=== PATIENT | female | born 1990 | race Caucasian/White ===

== ENCOUNTER → 2016-10-25 | Outpatient (REF) | payer OTHER | LOC: M LAB REF 09:17 | PROVIDERS: ATTEND Physician Assistant | DX: N39.0 Urinary tract infection, site not specified (principal) ==

== ENCOUNTER → 2016-11-04 | Outpatient (CLI) | payer OTHER ==
--- NOTE | 2016-11-04 13:04 | REP ---
LUMBOSACRAL SPINE SERIES: Five views of the lumbosacral spine are performed. There is no compression fracture or malalignment with normal lumbar lordosis. There is no spondylolysis or spondylolisthesis. Tiny spurs are seen at L5. Disc spaces appear well preserved. There is mild sclerosis at the facets of L5-S1. IUD is seen in the pelvis. The posterior elements are intact. IMPRESSION: Mild spurring at L5 and mild sclerosis at the facets of L5-S1. Signed by Dion Lion MD 11/05/2016 03:14 P
--- NOTE | 2016-11-04 13:09 | REP ---
SACRUM AND COCCYX: Three views of the sacrum and coccyx are performed and compared to prior study of 10/27/2009. I do not see a significant change when compared to the prior exam. There is no acute fracture or dislocation. Mild angulation deformity of the coccyx is unchanged since prior exam. There is sclerosis at the sacroiliac joints bilaterally of a moderate degree, mainly on the iliac side of both joints. This is stable. IMPRESSION: Stable exam, as discussed above. Signed by Dion Lion MD 11/05/2016 03:14 P
== END ==
LOC: M LRY 10:11
PROVIDERS: ATTEND Family Medicine
DX: M54.17 Radiculopathy, lumbosacral region (principal); M46.06 Spinal enthesopathy, lumbar region

== ENCOUNTER 2019-11-08 14:09 | Emergency (ER) | payer OTHER ==
[~2019-11-08] VITALS: Ht 149.9 cm; Wt 86.7 kg
[2019-11-08 15:36] LABS: BASO # 0.1 10^3/uL (0.0-0.2); BASO % 0.5 % (0.0-1.0); EOS # 0.2 10^3/uL (0.0-0.5); EOS % 1.7 % (0.0-3.0); HEMATOCRIT 44.8 % (36.0-47.0); LYMPH # 2.3 10^3/uL (1.5-5.0); MEAN CORPUSCULAR HEMOGLOBIN 29.2 pg (27.0-33.0); MEAN CORPUSCULAR HGB CONC 33.5 g/dl (32.0-36.5); MEAN CORPUSCULAR VOLUME 87.3 fl (80.0-96.0); MONO # 0.7 10^3/uL (0.0-0.8); MONO % 7.1 % (0.0-5.0); NEUTROPHILS # 6.7 10^3/uL (1.5-8.5); NEUTROPHILS % 67.4 % (36.0-66.0); PLATELET COUNT, AUTOMATED 203 10^3/uL (150-450); RED BLOOD COUNT 5.13 10^6/uL (4.00-5.40); WHITE BLOOD COUNT 9.9 10^3/uL (4.0-10.0)
[2019-11-08] MEDS ORDERED: NS 1,000 ML IV ONE (16:00)
[2019-11-08] MEDS ORDERED: ONDANSETRON 4MG/2ML VIAL (J2405 PER 1MG) IV ONE (16:00)
[2019-11-08] MEDS ORDERED: MORPHINE 2 MG/ML 1ML VIAL (J2270) IV ONE (16:00)
[2019-11-08 17:23] VITALS: BP 130/84
--- NOTE | 2019-11-08 17:27 | REP ---
HISTORY: Pelvic pain. COMPARISON: 09/08/2018 Transvesical and transvaginal imaging was obtained. The uterus measures 8.6 x 4.1 x 5 cm. The parenchymal echo pattern is within normal limits and unchanged. Within the endometrial cavity there is a specular reflection consistent with an IUD which appears predominantly within the lower uterine segment. The endometrial echo complex itself is unremarkable. Right ovary measures 2 x 1.1 x 1.9 cm and is within normal limits. Left ovary measures 2.3 x 2.1 x 2.4 cm and is within normal limits. Both right and left ovarian RIs are within normal limits. There is no free fluid in the cul-de-sac. The urinary bladder measures 4 x 3 x 5 cm. IMPRESSION: There is an IUD in place as described above. No abnormalities are noted. Electronically Signed by Fernandez Forbes DO 11/08/2019 06:47 P
== END 2019-11-08 17:32 | disposition home or self-care (01) ==
LOC: M ED 14:09
DX: R10.2 Pelvic and perineal pain (principal); N80.9 Endometriosis, unspecified; Z87.42 Personal history of other diseases of the female genital tract; Z87.442 Personal history of urinary calculi; Z87.440 Personal history of urinary (tract) infections; Z97.5 Presence of (intrauterine) contraceptive device; Z88.6 Allergy status to analgesic agent
CPT/HCPCS: 76830; 76856; 80047; 81001; 84702; 85025; 93976; 96361; 96374; 96375; 99284; J2270; J2405

== ENCOUNTER → 2019-11-17 | Outpatient (REF) | payer OTHER | LOC: M PLALAB 20:37 | PROVIDERS: ATTEND Obstetrics & Gynecology | DX: Z11.3 Encounter for screening for infections with a predominantly sexual mode of transmission (principal) ==

== ENCOUNTER → 2019-11-30 | Outpatient (REF) | payer OTHER ==
[2019-11-30 14:55] LABS: CHLAMYDIA DNA AMPLIFICATION POSITIVE (NEGATIVE); GC DNA AMPLIFICATION NEGATIVE (NEGATIVE)
== END ==
LOC: M PLALAB 12:08
PROVIDERS: ATTEND Obstetrics & Gynecology
DX: Z11.3 Encounter for screening for infections with a predominantly sexual mode of transmission (principal)

== ENCOUNTER → 2020-05-12 | Outpatient (CLI) | payer OTHER | LOC: M WHC 10:49 | PROVIDERS: ATTEND Obstetrics & Gynecology | DX: Z53.9 Procedure and treatment not carried out, unspecified reason (principal); Z30.431 Encounter for routine checking of intrauterine contraceptive device ==

== ENCOUNTER → 2020-05-22 | Outpatient (CLI) | payer OTHER ==
--- NOTE | 2020-05-22 15:04 | REP ---
INDICATION: Z30.431 MISPLACED IUD,NOT VISUALIZED ON HYSTREROSCOPY. COMPARISON: Comparison pelvic sonography November 08, 2019.. TECHNIQUE: Transabdominal and transvaginal scanning were performed. FINDINGS: Uterine dimensions are normal at 9.4 x 3.9 x 4.7 cm. Endometrial echo is 0.5 cm thick and centrally placed. There is an echogenic focus with some shadowing in the myometrium of the uterus to the right of the mid endometrium. This echogenic structure could be a dislodged portion of a metallic IUD. This echogenic structure in the myometrium does not appear to have been present in October 2019 prior study. No free fluid is seen in the cul-de-sac. Visualized bladder riggins are smooth. The right ovary has dimensions of 2.9 x 1.7 x 1.3 cm. The left ovary dimensions are normal as well at 2.5 x 2.4 x 2.6 cm. IMPRESSION: There is a focal shadowing echo in the myometrium of the right mid uterus which could be compatible with a fragment of IUD. AP radiograph of the pelvis may provide further information. No other evidence of IUD. No other morphologic abnormality.. <Electronically signed by Jr Duncan > 05/22/20 [id number]
== END ==
LOC: M WHC 08:43
PROVIDERS: ATTEND Obstetrics & Gynecology
DX: Z30.431 Encounter for routine checking of intrauterine contraceptive device (principal)

== ENCOUNTER → 2020-06-06 | Outpatient (CLI) | payer OTHER ==
[~2020-06-06] MED LIST: ALLE180T33 PO; AMBI10TA PO; CITA20TA6 PO; QVAR80AE8 INH; RITA10TA PO; VENTAER INH
== END ==
LOC: M LABSMTC 09:36
PROVIDERS: ATTEND Anesthesiology
DX: Z01.812 Encounter for preprocedural laboratory examination (principal); Z20.828 Contact with and (suspected) exposure to other viral communicable diseases

== ENCOUNTER 2020-06-11 09:03 | Day surgery (SDC) | payer OTHER ==
[~2020-06-11] VITALS: Ht 149.9 cm; Wt 87.2 kg
[2020-06-11] MEDS: LR 1,000 ML IV SCH (09:37)
[2020-06-11 09:42] LABS: HEMATOCRIT 44.6 % (36.0-47.0); HEMOGLOBIN 14.2 g/dl (12.0-15.5); MEAN CORPUSCULAR HEMOGLOBIN 28.2 pg (27.0-33.0); MEAN CORPUSCULAR HGB CONC 31.8 g/dl (32.0-36.5); MEAN CORPUSCULAR VOLUME 88.7 fl (80.0-96.0); PLATELET COUNT, AUTOMATED 228 10^3/uL (150-450); RED BLOOD COUNT 5.03 10^6/uL (4.00-5.40); WHITE BLOOD COUNT 7.8 10^3/uL (4.0-10.0)
[2020-06-11] MEDS ORDERED: LIDOCAINE 2% 100MG/5ML SDV (FOR ANES.) As Ordered ONE (10:17)
[2020-06-11] MEDS ORDERED: propofoL 200 MG/20 ML VIAL As Ordered ONE (10:17)
[2020-06-11] MEDS ORDERED: fentaNYL 100 MCG/2 ML INJECTION (J3010) As Ordered ONE (10:18)
[2020-06-11] MEDS ORDERED: MIDAZOLAM INJ 2MG/2ML VIAL (J2250 PER 1MG) As Ordered ONE (10:18)
[2020-06-11] MEDS ORDERED: dexameTHASONE 4 MG/ML 1ML VIAL (J1100 PER 1MG) As Ordered ONE (10:18)
[2020-06-11] MEDS ORDERED: ONDANSETRON 4MG/2ML VIAL As Ordered ONE (10:18)
[2020-06-11] MEDS ORDERED: ACETAMINOPHEN 1000MG 100ML IV BTL (OFIRMEV) (J0131 PER 10MG) As Ordered ONE (11:35)
[2020-06-11] MEDS ORDERED: METOCLOPRAMIDE INJ 10MG/2ML VIAL (J2765 PER 1) As Ordered ONE (11:38)
[2020-06-11] MEDS ORDERED: ONDANSETRON 4MG/2ML VIAL IV PRN (12:30)
[2020-06-11] MEDS ORDERED: LR 1,000 ML IV SCH (12:30)
[2020-06-11] MEDS ORDERED: oxyCODONE 5MG TAB PO PRN (12:30)
[2020-06-11] MEDS ORDERED: fentaNYL 100 MCG/2 ML INJECTION (J3010) IV PRN (12:30)
--- NOTE | 2020-06-11 12:47 | ROOPDOC ---
[facility] Report Of Operation Report of Operation DATE OF PROCEDURE: 06/11/20 PREOPERATIVE DIAGNOSES: 1. Misplaced intrauterine device POSTOPERATIVE DIAGNOSES: 1. Misplaced intrauterine device PROCEDURE PERFORMED: Diagnostic Hysteroscopy. SURGEON: Madeleine Moore MD TOP CARRIER: None. ANESTHESIA: General via laryngeal mask airway ESTIMATED BLOOD LOSS: 5ml IV FLUIDS: 500 mL of lactated Ringer's solution. URINE OUTPUT: Not obtained. PREOPERATIVE ANTIBIOTICS: None. OPERATIVE FINDINGS: Normal appearing endometrial cavity. No remnants of intrauterine device identified Bilateral ostia was visualized. DESCRIPTION OF PROCEDURE: After informed consent was obtained written consent was reviewed, the patient brought to operating room where she was placed under general anesthesia. She was then placed in lithotomy position and was prepped and draped in normal sterile fashion. Time-out in the operating room was then performed identifying the patient, procedure be performed as well as drug allergies. Valliant speculum was placed revealing the cervix. Anterior lip of the cervix grasped with a single-tooth tenaculum. The cervix then sequentially dilated using Hanks dilators. Hysteroscope was then advanced through the cervical os and endometrial cavity was observed with the above-noted findings. Hysteroscope was then removed. The single-tooth tenaculum was then removed. Tenaculum sites were noted be hemostatic. The speculum was then removed. The patient was then taken out of lithotomy position, was awakened from general anesthesia and taken recovery in stable condition. MADELEINE MOORE MD. Jun 11, 2020 12:47
[2020-06-11 13:25] VITALS: BP 133/74
== END 2020-06-11 13:28 | disposition home or self-care (01) ==
LOC: M SDC 09:03
PROVIDERS: ATTEND Obstetrics & Gynecology
DX: T83.32XA Displacement of intrauterine contraceptive device, initial encounter (principal); F41.9 Anxiety disorder, unspecified; F90.9 Attention-deficit hyperactivity disorder, unspecified type; G43.909 Migraine, unspecified, not intractable, without status migrainosus; J45.909 Unspecified asthma, uncomplicated; K21.9 Gastro-esophageal reflux disease without esophagitis; R06.83 Snoring; Z79.899 Other long term (current) drug therapy; Z88.6 Allergy status to analgesic agent
CPT/HCPCS: 36415; 58555; 81025; 85027; 86850; 86900; 86901; J0131; J1100; J2250; J2405; J2765; J3010

== ENCOUNTER → 2020-08-02 | Outpatient (CLI) | payer SELFPAY | LOC: M LABSMTC 11:54 | PROVIDERS: ATTEND Pediatrics | DX: Z20.822 Contact with and (suspected) exposure to COVID-19 (principal) ==

== ENCOUNTER → 2020-08-15 | Outpatient (CLI) | payer OTHER ==
[~2020-08-15] MED LIST changes: +E-Z-GAS II EFFERVESCENT PACKET (SODIUM BICARB./CITRIC ACID/SIMETHICONE) As Ordered ONE; +E-Z-HD 98% w/w 340GM SUSP BTL As Ordered ONE; +E-Z-PAQUE 96% w/w SUSP 176GM BTL As Ordered ONE
--- NOTE | 2020-08-15 08:05 | REP ---
INDICATION: RIGHT UPPER QUADRANT PAIN US 1ST UPPER GI 2ND COMPARISON: None. TECHNIQUE: Real time resendez scale ultrasound examination using curved array transducer. FINDINGS: Liver is diffusely echogenic with poor through transmission suggesting fatty infiltration. No focal hepatic lesion identified. Pancreas is normal in appearance and echotexture. The gallbladder is normal and without gallstones, wall thickening, or pericholecystic fluid. The common bile duct is dilated to 9 mm without intrahepatic biliary ductal dilatation and without obvious choledocholith or mechanical obstruction identified. Right kidney is normal in reniform shape without hydronephrosis and measures 12.4 x 6.0 x 4.6 cm. No ascites in the visualized right upper quadrant. Visualized portions of the abdominal aorta appear normal. IMPRESSION: 1. Dilated common bile duct without obvious cause and with normal appearance of the gallbladder. 2. Hepatosteatosis. <Electronically signed by Tai Rossi > 08/15/20 [id number]
--- NOTE | 2020-08-15 15:46 | REP ---
INDICATION: RIGHT UPPER QUADRANT PAIN US 1ST UPPER GI 2ND. COMPARISON: None TECHNIQUE: This procedure was performed by Krystin Garcia [facility], under the direct supervision of Dr. Lion. Images were reviewed with Dr. Lion prior to dictation. Liquid barium and gas producing crystals were given in the erect position, as well as liquid barium in the prone oblique position in order to perform a double contrast upper GI examination. FINDINGS: The pole climber film shows no organomegaly or pathological masses. The intestinal gas pattern is unremarkable. The oral and pharyngeal stages of deglutition were unremarkable. Esophageal transport is prompt and efficient and there is no evidence of esophagitis, stricture, or mucosal ring. There is no evidence of a hiatal hernia. There is no gastroesophageal reflux noted . The stomach riggins are normally outlined. The rugal folds are smooth and regular. There is no gastritis, neoplasm, or ulcerative disease. The duodenal riggins are normally outlined. There are some prominent folds in the proximal duodenum which could represent duodenitis.. The visualized portion of the proximal small bowel appears normal in course and caliber. IMPRESSION: Prominent mucosal folds of the proximal duodenum which may represent duodenitis. 0.4 minutes of fluoroscopy time was utilized for this procedure. Some fluoroscopic images are performed with last image hold technology. These images require no additional radiation. <Electronically signed by Krystin Garcia > 08/15/20 [id number] <Electronically signed by Dion Lion > 08/15/20 [id number]
== END ==
LOC: M RAD 06:23
PROVIDERS: ATTEND Nurse Practitioner
DX: R10.13 Epigastric pain (principal); R10.11 Right upper quadrant pain

== ENCOUNTER → 2020-10-31 | Outpatient (CLI) | payer OTHER ==
[~2020-10-31] MED LIST changes: -E-Z-GAS II EFFERVESCENT PACKET (SODIUM BICARB./CITRIC ACID/SIMETHICONE) As Ordered ONE; -E-Z-HD 98% w/w 340GM SUSP BTL As Ordered ONE; -E-Z-PAQUE 96% w/w SUSP 176GM BTL As Ordered ONE
[2020-10-31 14:40] LABS: ALBUMIN 3.3 GM/DL (3.2-5.2); ALT/SGPT 33 U/L (12-78); AMYLASE 54 U/L (25-115); BILIRUBIN,TOTAL 0.3 MG/DL (0.2-1.0); BLOOD UREA NITROGEN 13 MG/DL (7-18); C REACTIVE PROTEIN QUANTITATIV 3.52 MG/DL (0.00-0.30); CARBON DIOXIDE LEVEL 31 MEQ/L (21-32); CHLORIDE LEVEL 107 MEQ/L (98-107); GLOMERULAR FILTRATION RATE > 60.0 (>60); GLUCOSE, FASTING 87 MG/DL (70-100); LIPASE 116 U/L (73-393); SODIUM LEVEL 141 MEQ/L (136-145); TOTAL PROTEIN 6.6 GM/DL (6.4-8.2)
== END ==
LOC: M LAB 13:40
PROVIDERS: ATTEND Nurse Practitioner Family
DX: R10.9 Unspecified abdominal pain (principal)

== ENCOUNTER → 2020-10-31 | Outpatient (REF) | payer OTHER | LOC: M LAB 12:56 | PROVIDERS: ATTEND Surgery | DX: R10.9 Unspecified abdominal pain (principal) ==

== ENCOUNTER → 2020-12-16 | Outpatient (CLI) | payer OTHER ==
[~2020-12-16] MED LIST changes: +PROHANCE 279.3MG/ML 15ML VIAL As Ordered ONE; +PROHANCE 279.3MG/ML 5ML VIAL As Ordered ONE
--- NOTE | 2020-12-16 15:36 | REP ---
INDICATION: DISEASE OF BILIARY TRACT/MRCP. Abdominal pain. Dilated common bile duct. Bloating, odynophagia, dysphagia. COMPARISON: Comparison right upper quadrant sonography August 15, 2020.. TECHNIQUE: Axial and coronal T1 and T2 weighted MRI sequences include spin echo, gradient echo, in and out of phase, and dynamically acquired sequential postcontrast images. The contrast enhancement dose is 17 mL of intravenous ProHance. MRCP protocol is also deployed and maximum intensity projection images are reviewed in addition to source coronal images. FINDINGS: T2 weighted scans demonstrate a 13 mm focal T2 hyperintense lesion in the posterior segment of the right lobe of the liver. This is shows T1 hypointensity. It does not enhance and is compatible with a cyst. No other focal liver lesion is seen. The spleen is normal in size homogeneous in texture. No abnormality is noted in the pancreas. Normal adrenal glands are observed bilaterally kidneys are morphologically intact and enhance symmetrically. On T2 weighted scans, no filling defect is seen within the gallbladder to suggest stones. There is a tiny 0.4 cm polyp on the nondependent wall of the gallbladder on T2 weighted scans. There is no evidence of intrahepatic biliary ductal dilation. The common bile duct is normal on MRI and MRCP exam images measuring 4 mm in greatest diameter. MRCP images show no intrahepatic or extrahepatic biliary dilation. The pancreatic duct is unremarkable and normal in caliber. IMPRESSION: 1. A 13 mm cyst is seen in the liver. 2. Normal intrahepatic and extrahepatic bile ducts. 4 mm CBD. 3. 4 mm gallbladder wall polyp. <Electronically signed by Jr Duncan > 12/16/20 [id number]
== END ==
LOC: M RAD 12:40
PROVIDERS: ATTEND Internal Medicine Gastroenterology
DX: R10.9 Unspecified abdominal pain (principal); R13.10 Dysphagia, unspecified; R14.0 Abdominal distension (gaseous); K83.8 Other specified diseases of biliary tract
CPT/HCPCS: 74183; A9576

== ENCOUNTER → 2020-12-17 | Outpatient (REF) | payer OTHER ==
[~2020-12-17] MED LIST changes: -PROHANCE 279.3MG/ML 15ML VIAL As Ordered ONE; -PROHANCE 279.3MG/ML 5ML VIAL As Ordered ONE
== END ==
LOC: M SFHCWAGY 12:56
PROVIDERS: ATTEND Obstetrics & Gynecology
DX: R87.612 Low grade squamous intraepithelial lesion on cytologic smear of cervix (LGSIL) (principal)

== ENCOUNTER → 2021-02-18 | Outpatient (CLI) | payer OTHER ==
--- NOTE | 2021-02-18 11:57 | REP ---
INDICATION: ABD PAIN. COMPARISON: Right upper quadrant ultrasound 08/15/2020 TECHNIQUE/RADIOTRACER AND DOSE: Patient received 6.5 mCi technetium 99m Mebrofenin with sequential anterior 5 minute images for 1 hour. There after 8 oz of Ensure Enlive given beginning 65 minutes post tracer injection and then 60 minutes of dynamic anterior imaging performed. Region of interest drawn around the gallbladder and ejection fraction calculated by a semi automated method. FINDINGS: There is homogeneous tracer distribution throughout the liver with the exception of the affect of the breasts shadow over the dome of the liver is a normal finding. Washout begins quickly and activity accumulates in the gallbladder fossa beginning at 10 minutes with progressive washout and increasing activity in the gallbladder activity is 1st seen in the a duodenum by 30 minutes with activity into small bowel by 40 minutes and progressive washout demonstrated. The gallbladder ejection fraction is calculated at 80 9% at 1 hour. With this technique normal range EF is considered greater than 35%. IMPRESSION: 1. Normal biliary scan and gallbladder ejection fraction. <Electronically signed by Tyrese Donovan > 02/18/21 [id number]
== END ==
LOC: M RAD 08:51
PROVIDERS: ATTEND Nurse Practitioner Family
DX: R10.9 Unspecified abdominal pain (principal); R13.10 Dysphagia, unspecified; K83.8 Other specified diseases of biliary tract; K27.9 Peptic ulcer, site unspecified, unspecified as acute or chronic, without hemorrhage or perforation
CPT/HCPCS: 78227; A9537

== ENCOUNTER → 2021-09-24 | Outpatient (CLI) | payer OTHER | LOC: M RAD 15:46 → M LAB 15:46 | PROVIDERS: ATTEND Nurse Practitioner Family | DX: R06.6 Hiccough (principal); R06.02 Shortness of breath ==

== ENCOUNTER → 2021-11-24 | Outpatient (REF) | payer BC | LOC: M SFHCWAGY 16:44 | PROVIDERS: ATTEND Advanced Practice Midwife | DX: Z12.4 Encounter for screening for malignant neoplasm of cervix (principal) ==

== ENCOUNTER → 2021-11-25 | Outpatient (CLI) | payer BC | LOC: M PLALAB 07:58 | PROVIDERS: ATTEND Advanced Practice Midwife | DX: Z80.3 Family history of malignant neoplasm of breast (principal) ==

== ENCOUNTER → 2022-01-01 | Outpatient (CLI) | payer BC | LOC: M WHC 12:00 | PROVIDERS: ATTEND Advanced Practice Midwife | DX: N94.6 Dysmenorrhea, unspecified (principal) ==

== ENCOUNTER → 2022-01-15 | Outpatient (CLI) | payer BC | LOC: M WHC 08:44 | PROVIDERS: ATTEND Advanced Practice Midwife | DX: R92.2 Inconclusive mammogram (principal); Z80.3 Family history of malignant neoplasm of breast | CPT/HCPCS: 76642; 77065; G0279 ==

== ENCOUNTER → 2022-01-31 | Outpatient (CLI) | payer BC, MEDICAID ==
[~2022-01-31] MED LIST changes: +PANT40TA29; +VENL75CA47; +VERA80TA3
== END ==
LOC: M LABSMTC 09:35
PROVIDERS: ATTEND Anesthesiology
DX: Z01.818 Encounter for other preprocedural examination (principal); Z11.52 Encounter for screening for COVID-19

== ENCOUNTER 2022-02-05 11:55 | Day surgery (SDC) | payer BC ==
[~2022-02-05] VITALS: Ht 149.9 cm; Wt 99.7 kg
[~2022-02-05 11:55] MED LIST changes: +HYDROmorphone HCL 2MG/ML 1ML VIAL As Ordered ONE; +LIDOCAINE 2% INJ 100 MG/5 ML SYRINGE As Ordered ONE; +MIDAZOLAM INJ 2MG/2ML VIAL (J2250 PER 1MG) As Ordered ONE; +ONDANSETRON 4MG 2ML VIAL As Ordered ONE; +ROCURONIUM BROMIDE 50 MG/5 ML VIAL As Ordered ONE; +dexameTHASONE 4 MG/ML 1ML VIAL (J1100 PER 1MG) As Ordered ONE; +fentaNYL 100 MCG/2 ML INJECTION As Ordered ONE; +propofoL 200 MG/20 ML VIAL As Ordered ONE
[2022-02-05] MEDS ORDERED: SUGAMMADEX SODIUM 500 MG/5 ML VIAL (BRIDION) As Ordered ONE (12:02)
[2022-02-05] MEDS ORDERED: LR 1,000 ML IV SCH ×2 (12:15→15:15)
[2022-02-05] MEDS ORDERED: GLYCOPYRROLATE INJ 0.2 MG/ML 2 ML VIAL As Ordered ONE (14:48)
[2022-02-05] MEDS ORDERED: ePHEDrine SULFATE 25 MG/5 ML(5MG/ML) SYRINGE As Ordered ONE (14:48)
[2022-02-05] MEDS: BUPIVACAINE HCL 0.25% 10ML VIAL As Ordered ONE (14:56)
[2022-02-05] MEDS ORDERED: METOCLOPRAMIDE INJ 10MG/2ML VIAL (J2765 PER 1) As Ordered ONE (15:03)
[2022-02-05] MEDS ORDERED: oxyCODONE 5MG TAB PO PRN (15:15)
[2022-02-05] MEDS ORDERED: ONDANSETRON 4MG 2ML VIAL IV PRN (15:15)
[2022-02-05] MEDS ORDERED: MORPHINE 2 MG/ML 1ML VIAL IV PRN (15:15)
[2022-02-05] MEDS ORDERED: fentaNYL 100 MCG/2 ML INJECTION IV PRN (15:15)
[2022-02-05] MEDS ORDERED: PERCOCET 5MG/325MG TAB PO PRN (15:30)
[2022-02-05 16:23] VITALS: BP 129/72
== END 2022-02-05 16:39 | disposition home or self-care (01) ==
LOC: M SDC 11:55
PROVIDERS: ATTEND Obstetrics & Gynecology
DX: Z30.2 Encounter for sterilization (principal); J45.909 Unspecified asthma, uncomplicated; K21.9 Gastro-esophageal reflux disease without esophagitis; Z88.6 Allergy status to analgesic agent
CPT/HCPCS: 58661; 81025; 88302; J1100; J1170; J2250; J2405; J2765; J3010

== ENCOUNTER → 2022-03-26 | Outpatient (CLI) | payer BC ==
[~2022-03-26] MED LIST changes: -HYDROmorphone HCL 2MG/ML 1ML VIAL As Ordered ONE; -LIDOCAINE 2% INJ 100 MG/5 ML SYRINGE As Ordered ONE; -MIDAZOLAM INJ 2MG/2ML VIAL (J2250 PER 1MG) As Ordered ONE; -ONDANSETRON 4MG 2ML VIAL As Ordered ONE; -ROCURONIUM BROMIDE 50 MG/5 ML VIAL As Ordered ONE; -dexameTHASONE 4 MG/ML 1ML VIAL (J1100 PER 1MG) As Ordered ONE; -fentaNYL 100 MCG/2 ML INJECTION As Ordered ONE; -propofoL 200 MG/20 ML VIAL As Ordered ONE
== END ==
LOC: M RAD 14:04
PROVIDERS: ATTEND Physician Assistant
DX: M54.50 Low back pain, unspecified (principal)

== ENCOUNTER → 2022-07-23 | Outpatient (CLI) | payer OTHER ==
[~2022-07-23] MED LIST changes: +PROHANCE 279.3MG/ML 15ML VIAL ONE
== END ==
LOC: M PLAIMG 10:16
PROVIDERS: ATTEND Nurse Practitioner Women's Health
DX: Z12.39 Encounter for other screening for malignant neoplasm of breast (principal); Z80.3 Family history of malignant neoplasm of breast

== ENCOUNTER → 2022-07-28 | Outpatient (CLI) | payer OTHER, MEDICAID ==
[~2022-07-28] MED LIST changes: -PROHANCE 279.3MG/ML 15ML VIAL ONE
[2022-07-28 18:44] LABS: BASO % 0.5 % (0.0-1.0); EOS # 0.4 10^3/uL (0.0-0.5); EOS % 5.4 % (0.0-3.0); HEMATOCRIT 44.9 % (36.0-47.0); HEMOGLOBIN 14.7 g/dl (12.0-15.5); LYMPH # 2.8 10^3/uL (1.5-5.0); LYMPH % 34.8 % (24.0-44.0); MEAN CORPUSCULAR HEMOGLOBIN 28.9 pg (27.0-33.0); MEAN CORPUSCULAR HGB CONC 32.7 g/dl (32.0-36.5); MEAN CORPUSCULAR VOLUME 88.4 fl (80.0-96.0); MONO # 0.6 10^3/uL (0.0-0.8); MONO % 7.9 % (2.0-8.0); NEUTROPHILS # 4.1 10^3/uL (1.5-8.5); NEUTROPHILS % 51.1 % (36.0-66.0); PLATELET COUNT, AUTOMATED 173 10^3/uL (150-450); RED BLOOD COUNT 5.08 10^6/uL (4.00-5.40)
[2022-07-28 18:54] LABS: VALPROIC ACID (DEPAKOTE) 44.2 UG/ML (50.0-100.0)
[2022-07-28 19:00] LABS: ALBUMIN 3.3 G/DL (3.2-5.2); ALKALINE PHOSPHATASE 68 U/L (46-116); ALT/SGPT 49 U/L (7.0-40); AST/SGOT 20 U/L (<34); BILIRUBIN,TOTAL 0.6 MG/DL (0.3-1.2); BLOOD UREA NITROGEN 11 MG/DL (9-23); CALCIUM LEVEL 8.7 MG/DL (8.5-10.1); CARBON DIOXIDE LEVEL 30 MMOL/L (20-31); CHLORIDE LEVEL 103 MMOL/L (98-107); CREATININE FOR GFR 0.84 MG/DL (0.55-1.30); FOLATE 7.4 NG/ML (>5.4); GLOMERULAR FILTRATION RATE > 60.0 (>60); GLUCOSE, FASTING 70 MG/DL (60-100); POTASSIUM SERUM 4.1 MMOL/L (3.5-5.1); SODIUM LEVEL 139 MMOL/L (136-145); TOTAL 25(OH) VITAMIN D 72.7 NG/ML (20.0-100.0); TOTAL PROTEIN 6.5 G/DL (5.7-8.2); VITAMIN B12 LEVEL 562 PG/ML (211-911)
== END ==
LOC: M LAB 16:20
PROVIDERS: ATTEND Psychiatry & Neurology Neurology
DX: R51.9 Headache, unspecified (principal)

== ENCOUNTER → 2022-11-08 | Outpatient (CLI) | payer OTHER | LOC: M RAD 15:54 | PROVIDERS: ATTEND Orthopaedic Surgery | DX: M54.59 Other low back pain (principal) ==

== ENCOUNTER → 2022-12-17 | Outpatient (CLI) | payer MEDICAID, OTHER ==
[2022-12-17 11:45] LABS: BASO # 0.1 10^3/uL (0.0-0.2); BASO % 0.6 % (0.0-1.0); EOS # 0.9 10^3/uL (0.0-0.5); HEMATOCRIT 43.7 % (36.0-47.0); HEMOGLOBIN 14.4 g/dl (12.0-15.5); LYMPH # 2.5 10^3/uL (1.5-5.0); MEAN CORPUSCULAR HEMOGLOBIN 29.4 pg (27.0-33.0); MEAN CORPUSCULAR VOLUME 89.4 fl (80.0-96.0); MONO # 0.6 10^3/uL (0.0-0.8); MONO % 6.6 % (2.0-8.0); NEUTROPHILS # 4.6 10^3/uL (1.5-8.5); NEUTROPHILS % 53.6 % (36.0-66.0); PLATELET COUNT, AUTOMATED 231 10^3/uL (150-450); RED BLOOD COUNT 4.89 10^6/uL (4.00-5.40); WHITE BLOOD COUNT 8.5 10^3/uL (4.0-10.0)
[2022-12-17 12:40] LABS: ALBUMIN 3.6 G/DL (3.2-5.2); ALKALINE PHOSPHATASE 64 U/L (46-116); ALT/SGPT 23 U/L (7.0-40); AST/SGOT 14 U/L (<34); BILIRUBIN,TOTAL 0.5 MG/DL (0.3-1.2); BLOOD UREA NITROGEN < 5 MG/DL (9-23); CALCIUM LEVEL 9.2 MG/DL (8.5-10.1); CARBON DIOXIDE LEVEL 24 MMOL/L (20-31); CHLORIDE LEVEL 106 MMOL/L (98-107); CREATININE FOR GFR 0.62 MG/DL (0.55-1.30); GLOMERULAR FILTRATION RATE > 60.0 (>60); GLUCOSE, FASTING 68 MG/DL (60-100); POTASSIUM SERUM 4.3 MMOL/L (3.5-5.1); SODIUM LEVEL 138 MMOL/L (136-145); TOTAL PROTEIN 6.8 G/DL (5.7-8.2)
== END ==
LOC: M LAB 11:13
PROVIDERS: ATTEND Psychiatry & Neurology Neurology
DX: R51.9 Headache, unspecified (principal)

== ENCOUNTER → 2023-01-03 | Outpatient (CLI) | payer OTHER | LOC: M WHC 08:30 | PROVIDERS: ATTEND Nurse Practitioner Women's Health | DX: Z12.31 Encounter for screening mammogram for malignant neoplasm of breast (principal) ==

== ENCOUNTER → 2023-01-18 | Outpatient (CLI) | payer OTHER | LOC: M WHC 14:59 | PROVIDERS: ATTEND Nurse Practitioner Women's Health | DX: Z12.31 Encounter for screening mammogram for malignant neoplasm of breast (principal); Z80.3 Family history of malignant neoplasm of breast ==

== ENCOUNTER → 2023-01-26 | Outpatient (CLI) | payer OTHER | LOC: M RAD 09:56 | PROVIDERS: ATTEND Physician Assistant | DX: M51.35 Other intervertebral disc degeneration, thoracolumbar region (principal) | CPT/HCPCS: 78306; 78315; A9503 ==

== ENCOUNTER → 2023-07-27 | Outpatient (CLI) | payer MEDICAID, OTHER, SELFPAY ==
[~2023-07-27] MED LIST changes: +DIVA500T9 PO; +METH20TA29 PO; -PANT40TA29; +PANT40TA29 PO; +PROHANCE 279.3MG/ML 15ML VIAL ONE; +SEMA2.4P PO; +SYMB16INH INH; -VENL75CA47; +VENL75CA47 PO; -VERA80TA3; +VERA80TA3 PO
== END ==
LOC: M PLAIMG 08:38
PROVIDERS: ATTEND Nurse Practitioner Women's Health
DX: Z12.31 Encounter for screening mammogram for malignant neoplasm of breast (principal)
CPT/HCPCS: 77049; A9576

== ENCOUNTER 2023-08-05 10:53 | Day surgery (SDC) | payer OTHER ==
[~2023-08-05] VITALS: Ht 149.9 cm; Wt 66.9 kg
[~2023-08-05 10:53] MED LIST changes: -PROHANCE 279.3MG/ML 15ML VIAL ONE; +ceFAZolin SOD 2 GM in IV 1 EA IV ONE
[2023-08-05] MEDS ORDERED: LR 1,000 ML IV SCH ×2 (11:15→14:25)
[2023-08-05] MEDS ORDERED: fentaNYL 100 MCG/2 ML INJECTION As Ordered ONE (11:20)
[2023-08-05] MEDS ORDERED: MIDAZOLAM INJ 2MG/2ML VIAL As Ordered ONE (11:20)
[2023-08-05] MEDS ORDERED: KETOROLAC 60MG 2ML VIAL As Ordered ONE (11:21)
[2023-08-05] MEDS ORDERED: ONDANSETRON 4MG 2ML VIAL As Ordered ONE (11:21)
[2023-08-05] MEDS ORDERED: LIDOCAINE 2% 100MG/5ML SDV (FOR ANES.) As Ordered ONE (11:21)
[2023-08-05] MEDS ORDERED: propofoL 200 MG/20 ML VIAL As Ordered ONE (11:21)
[2023-08-05] MEDS ORDERED: SUGAMMADEX SODIUM 500 MG/5 ML VIAL (BRIDION) As Ordered ONE (11:21)
[2023-08-05] MEDS ORDERED: ROCURONIUM BROMIDE 50MG/5ML VIAL As Ordered ONE (11:21)
[2023-08-05] MEDS ORDERED: ACETAMINOPHEN 1000MG 100ML IV BAG As Ordered ONE (11:21)
[2023-08-05 11:32] LABS: HEMATOCRIT 45.9 % (36.0-47.0); HEMOGLOBIN 15.1 g/dl (12.0-15.5); MEAN CORPUSCULAR HEMOGLOBIN 29.8 pg (27.0-33.0); MEAN CORPUSCULAR HGB CONC 32.9 g/dl (32.0-36.5); MEAN CORPUSCULAR VOLUME 90.5 fl (80.0-96.0); PLATELET COUNT, AUTOMATED 259 10^3/uL (150-450); RED BLOOD COUNT 5.07 10^6/uL (4.00-5.40); WHITE BLOOD COUNT 7.7 10^3/uL (4.0-10.0)
[2023-08-05] MEDS ORDERED: ONDANSETRON 4MG 2ML VIAL IV PRN (14:25)
[2023-08-05] MEDS ORDERED: PERCOCET 5MG/325MG TAB PO PRN (14:35)
[2023-08-05] MEDS: oxyCODONE 5MG TAB PO PRN ×2 (14:38→15:10)
[2023-08-05] MEDS: HYDROMORPHONE HCL 0.5 MG/ 0.5 ML SYRINGE IV PRN ×4 (14:38→14:53)
[2023-08-05] MEDS: fentaNYL 100 MCG/2 ML INJECTION IV PRN ×3 (14:56→15:06)
[2023-08-05 16:05] VITALS: BP 104/61; TEMP 97.4; O2SAT 100
== END 2023-08-05 16:30 | disposition home or self-care (01) ==
LOC: M SDC 10:53
PROVIDERS: ATTEND Obstetrics & Gynecology
DX: N93.9 Abnormal uterine and vaginal bleeding, unspecified (principal); N80.03 Adenomyosis of the uterus; J45.909 Unspecified asthma, uncomplicated; Z98.51 Tubal ligation status; Z79.899 Other long term (current) drug therapy; Z79.51 Long term (current) use of inhaled steroids; Z88.6 Allergy status to analgesic agent
CPT/HCPCS: 36415; 58550; 81025; 85027; 86850; 86900; 86901; 88307; J0131; J0665; J1100; J1170; J2250; J2405; J3010

== ENCOUNTER → 2023-11-27 | Outpatient (CLI) | payer BC ==
[~2023-11-27] MED LIST changes: -ceFAZolin SOD 2 GM in IV 1 EA IV ONE
[2023-11-27 14:40] LABS: BASO % 0.6 % (0.0-1.0); EOS # 0.2 10^3/uL (0.0-0.5); EOS % 3.6 % (0.0-3.0); HEMATOCRIT 40.3 % (36.0-47.0); HEMOGLOBIN 13.6 g/dl (12.0-15.5); LYMPH # 2.3 10^3/uL (1.5-5.0); LYMPH % 34.3 % (24.0-44.0); MEAN CORPUSCULAR HGB CONC 33.7 g/dl (32.0-36.5); MEAN CORPUSCULAR VOLUME 88.8 fl (80.0-96.0); MONO # 0.4 10^3/uL (0.0-0.8); MONO % 6.2 % (2.0-8.0); NEUTROPHILS # 3.7 10^3/uL (1.5-8.5); NEUTROPHILS % 55.2 % (36.0-66.0); PLATELET COUNT, AUTOMATED 200 10^3/uL (150-450); RED BLOOD COUNT 4.54 10^6/uL (4.00-5.40); WHITE BLOOD COUNT 6.7 10^3/uL (4.0-10.0)
[2023-11-27 14:55] LABS: VALPROIC ACID (DEPAKOTE) 42.1 UG/ML (50.0-100.0)
[2023-11-27 14:57] LABS: ALBUMIN 3.4 G/DL (3.2-5.2); ALKALINE PHOSPHATASE 54 U/L (46-116); ALT/SGPT 14 U/L (7.0-40); AST/SGOT 9 U/L (<34); BILIRUBIN,TOTAL 0.7 MG/DL (0.3-1.2); BLOOD UREA NITROGEN 7 MG/DL (9-23); CALCIUM LEVEL 8.9 MG/DL (8.5-10.1); CARBON DIOXIDE LEVEL 30 MMOL/L (20-31); CHLORIDE LEVEL 104 MMOL/L (98-107); CREATININE FOR GFR 0.68 MG/DL (0.55-1.30); GLOMERULAR FILTRATION RATE > 60.0 (>60); GLUCOSE, FASTING 75 MG/DL (60-100); SODIUM LEVEL 140 MMOL/L (136-145); TOTAL PROTEIN 6.3 G/DL (5.7-8.2)
== END ==
LOC: M LAB 14:15
PROVIDERS: ATTEND Psychiatry & Neurology Neurology
DX: R51.9 Headache, unspecified (principal)

== ENCOUNTER → 2024-01-23 | Outpatient (CLI) | payer BC | LOC: M WHC 08:12 | PROVIDERS: ATTEND Nurse Practitioner Women's Health | DX: Z12.31 Encounter for screening mammogram for malignant neoplasm of breast (principal) ==

== ENCOUNTER → 2024-03-09 | Outpatient (CLI) | payer BC, OTHER, MEDICAID | LOC: M RAD 10:10 | PROVIDERS: ATTEND Physician Assistant | DX: M54.2 Cervicalgia (principal) ==

== ENCOUNTER → 2024-06-04 | Outpatient (CLI) | payer BC ==
[2024-06-04 10:10] LABS: MAGNESIUM LEVEL 2.1 MG/DL (1.8-2.4)
[2024-06-04 10:16] LABS: TOTAL 25(OH) VITAMIN D 46.5 NG/ML (20.0-100.0)
== END ==
LOC: M LAB 08:59
PROVIDERS: ATTEND Internal Medicine Gastroenterology
DX: K44.9 Diaphragmatic hernia without obstruction or gangrene (principal)

== ENCOUNTER → 2024-10-03 | Outpatient (CLI) | payer BC ==
[~2024-10-03] MED LIST changes: +PROHANCE 279.3MG/ML 5ML VIAL ONE
== END ==
LOC: M PLAIMG 10:04
PROVIDERS: ATTEND Obstetrics & Gynecology
DX: Z12.31 Encounter for screening mammogram for malignant neoplasm of breast (principal)